=== PATIENT | female | born 1975 | race Caucasian/White ===

== ENCOUNTER 2016-11-10 21:14 | Emergency (ER) | payer OTHER ==
[~2016-11-10] VITALS: Ht 162.6 cm; Wt 56.8 kg
[2016-11-10 21:25] VITALS: BP 121/80; PULSE 89; RESP 16; O2SAT 98
[2016-11-10 21:52] LABS: BASOPHILS % (AUTO) 0.3 % (0-3); EOSINOPHILS % (AUTO) 4.8 % (0-5); Mean Corpuscular Hemoglobin 31.7 pg (27.0-35.0); Mean Corpuscular Volume 89.7 fL (81-100); NEUTROPHILS % (AUTO) 53.7 % (40-74); Platelet Count 272 bil/L (150-400)
--- NOTE | 2016-11-10 23:18 | ED.REPORT ---
HPI-Rash / Abscess Date of Service Nov 10, 2016 ED Provider: Michael Brown DO Pt is a 41 year old female with a history of auto-immune disorders who presents to the ED complaining of worsening diffuse rash onset 1 week ago. She c/o associated itching and insomnia secondary to the itching. The pt reports that she presented to her PCP at the onset of her symptoms with diagnosis of possible staph infection or scabies. She was prescribed 500 mg of Cephalexin every 8 hours on 11/06/16 without relief. Pt was referred to the ED by her PCP for further evaluation. Nursing Notes Stated Complaint: RASH ALL OVER BODY Chief Complaint: Skin Rash/Abscess Nursing Notes Reviewed: Yes Allergies: Coded Allergies: oxycodone (Verified Allergy, Severe, anaphylaxis, 11/10/16) doxycycline (Verified Allergy, Unknown, GI problems, 11/10/16) General Time Seen by MD: 23:18 Chief Complaint Rash Hx Obtained From: Patient Arrived By: Walk-in Onset Occurred: 1 week ago Symptom Duration: Since onset Location: : Generalized Quality: Itching Severity: Current: Moderate Severity: Maximum: Moderate Recent Healthcare: Recent doctor visit Similar Sx Previous: No Past Medical History Past Medical History Auto-immune disorders Past Surgical History Denies Smoking History Unknown if Ever Smoker Social History Other Social History: Good social support Ambulatory Status Independent Review of Systems Constitutional: Denies: Fever Skin: Reports Rash Allergy / Immune: Reports: Itching Complete sys rev & neg: except as marked. Psychiatric: Reports: Insomnia Physical Exam Initial Vital Signs Vital Signs (First) Date Time Temp Pulse Resp B/P Pulse Ox O2 Delivery O2 Flow Rate FiO2 11/10/16 21:25 36.7 89 16 121/80 98 Room Air Initial VS: Reviewed Head / Eyes: Atraumatic, Normocephalic Neck: Supple, Full range of motion Respiratory: Breath sounds normal, Clear to auscultation, No respiratory distress Cardiovascular: Regular rate & rhythm, Heart sounds normal, Intact distal pulses Extremities: Vascular intact, Neuro intact Neurologic: Alert, Oriented, Nonfocal Psychiatric: Mood/affect normal, Behavior normal General/Constitutional: Awake, Alert Skin: Warm, Dry, Intact Diffuse urticaria Interpretation & Diagnostics Lab Results Interpretation Result Diagram: 11/10/16214411/10/162144 Test 11/10/16 21:45 White Blood Count 6.7th/mm3 (3.8-10.1) Red Blood Count 4.45mil/mm3 (3.90-5.20) Hemoglobin 14.1g/dL (12.0-15.6) Hematocrit 39.9% (35.0-46.0) Mean Corpuscular Volume 89.7fL (81-100) Mean Corpuscular Hemoglobin 31.7pg (27.0-35.0) Mean Corpuscular Hemoglobin Concent 35.3% (32.0-37.0) Red Cell Distribution Width 12.2% (12.3-15.4) Platelet Count 272bil/L (150-400) Neutrophils (%) (Auto) 53.7% (40-74) Lymphocytes (%) (Auto) 29.0% (14-46) Monocytes (%) (Auto) 12.0% (4-12) Eosinophils (%) (Auto) 4.8% (0-5) Basophils (%) (Auto) 0.3% (0-3) Sodium Level 140mEq/L (134-144) Potassium Level 3.8mEq/L (3.5-5.2) Chloride Level 100mEq/L (97-108) Carbon Dioxide Level 30mmol/L (18-29) Blood Urea Nitrogen 14mg/dL (6-24) Creatinine 0.77mg/dL (0.57-1.00) Estimat Glomerular Filtration Rate 118mL/min (>59) Glucose Level 84mg/dL (60-99) Calcium Level 9.0mg/dL (8.5-10.1) Total Bilirubin 0.8mg/dL (0.0-1.2) Aspartate Amino Transf (AST/SGOT) 13U/L (0-50) Alanine Aminotransferase (ALT/SGPT) 10U/L (0-32) Alkaline Phosphatase 67U/L (25-150) Total Protein 6.8g/dL (6.4-8.4) Albumin 4.7g/dL (3.4-5.0) Hold Rice Top Tube Received (Received) Re-Eval/Medical Decision Med Decision/Clinical Course To me this looks like a drug reaction. It is in her hairline and diffuse. Seemed to worsen after she started the Keflex. Started to say with the initial rash in her axilla was. More than likely would have been fungal to begin with. Certainly no signs of active cellulitis right now. I will have her stop the Keflex. Repeat the dose of dexamethasone tomorrow. She is given a benzodiazepine which helped with the pruritus. Recommend close outpatient follow-up. Sedative warnings given. Source of Hx: Old records Re-Evaluation/Progress : Time of Eval: 23:25 Re-Evaluation/Progress Note: Informed pt of lab results and plan for treatment with pending discharge. Pt understands and agrees with plan for discharge. F/U instructions and RTER warnings given. All questions addressed. Counseled Regarding: Diagnosis, Lab results, Need for follow-up, When/why to return to ED Discharge & Departure Impression: Primary Impression: Urticaria Disposition: Home Discharge Condition All VS Reviewed: Yes Condition: Stable Patient Instructions: Adverse Drug Reaction (ED), Urticaria (ED) Additional Instructions: Perhaps you are reacting to the Keflex. I do not think that the lesion in your axilla looks bacterial. Either way stop taking the Keflex. Repeat the dose of dexamethasone tomorrow. Take 1 Atarax every 8 hours for extreme pruritus. This medication is highly sedating so only take it when you can rest. Do not drive tonight. Do not drive or drink alcohol while taking the Atarax. Set up a follow up with your primary care physician. I also recommend that you follow-up with a yarn winder. Call tomorrow to set this up. Laboratory work was normal and reassuring. Referrals: Jorge Kelley MD (PCP) Yessenia Attestation Portions of this note were transcribed by Ciara Wood. I, Dr. Brown personally performed the history, physical exam and medical decision-making; I reviewed and confirmed the accuracy of the information in the transcribed note. Signed by : Yessenia White, 11/10/16. copies to: Jorge Kelley MD, Todd P DO Nov 10, 2016 23:18 Ciara Mendoza Nov 10, 2016 23:34
[2016-11-10] MEDS ORDERED: Dexamethasone 10 mg/mL Inj IM ONE (23:30)
[2016-11-10] MEDS ORDERED: LORazepam 1 mg Tablet PO ONE (23:30)
[2016-11-11] MEDS ORDERED: Dexamethasone 20 mg/2 mL Oral Solution PO ONE (00:25)
== END 2016-11-11 00:40 | disposition home or self-care (01) ==
LOC: SED 21:14
DX: L50.9 Urticaria, unspecified (principal); Z88.1 Allergy status to other antibiotic agents; Z88.5 Allergy status to narcotic agent
CPT/HCPCS: 36415; 80053; 85025; 96372; 99284; J1100; J1200